=== PATIENT | female | born 1965 | race Caucasian/White ===

== ENCOUNTER 2023-08-07 07:27 | Day surgery (SDC) | payer MEDICAID ==
[~2023-08-07] VITALS: Ht 152.4 cm; Wt 77.6 kg
[2023-08-07] MEDS ORDERED: MEPERIDINE 100 MG INJ. 100 MG/ML VIAL ONE (07:56)
[2023-08-07] MEDS ORDERED: SIMETHICONE 40 MG/0.6 ML ML ONE (07:56)
[2023-08-07] MEDS ORDERED: MIDAZOLAM HCL 5 MG/5 ML VIAL ONE (07:56)
[2023-08-07 09:00] VITALS: O2SAT 99
[2023-08-07 16:22] VITALS: BP_SYST 141; PULSE 68; RESP 11
== END 2023-08-07 10:00 | disposition home or self-care (01) ==
LOC: SDS 07:27 → SMU 07:29 → SDS 10:00
PROVIDERS: ATTEND Internal Medicine Gastroenterology
DX: Z12.11 Encounter for screening for malignant neoplasm of colon (principal); K63.5 Polyp of colon; K64.9 Unspecified hemorrhoids; I10 Essential (primary) hypertension; E78.5 Hyperlipidemia, unspecified; E03.9 Hypothyroidism, unspecified; E11.9 Type 2 diabetes mellitus without complications; Z79.4 Long term (current) use of insulin; Z79.899 Other long term (current) drug therapy; Z88.6 Allergy status to analgesic agent; Z88.8 Allergy status to other drugs, medicaments and biological substances
CPT/HCPCS: 45380; 99152; 82962; 88305; 99153; G0378; J2250; J2175